=== PATIENT | male | born 1955 | race Caucasian/White ===

== ENCOUNTER 2024-10-31 12:12 | Day surgery (SDC) | payer MEDICARE, SELFPAY ==
--- OUTSIDE RECORDS SUMMARY | 2024-09-30 13:48 | XMS_ITS | Patient Health Record ---
Author Organization [facility] Address [address] [place] [address] Care Team Providers Care Linen Room Supervisor Name Role Phone Derian Muñiz MD Primary Care Provider Derek Kaminski [phone] Allergies No Known Allergies Reason For Referral No Information Medications Medication SIG (Take, Route, Frequency, Duration) Notes Start Date End Date Status Omeprazole 40 MG Oral Act ayesha Multivitamin - 1 tablet Orally Once a day for 30 day(s) Active MCT Oil - 15 mL Orally once a day Active Rosuvastatin Calcium 5 MG Oral for 90 Active amLODIPine Besy-Benazepril HCl 5-20 MG TAKE 1 CAPSULE BY MOUTH DAILY Oral for 30 Active Immunizations Vaccine Route Administration Date Status Comme nts Influenza Unknown 02/01/2019 Administered Social History Tobacco Use: Social History Observation Description Date Details (start date - stop date) Current Smoker NA - NA Tobacco Use/Smoking Question Answer Notes Patient is a current smoker How often do you smoke cigarettes? every day How many cigarettes a day do you smoke? 11-20 How soon after you wake up d o you smoke your first cigarette? 6-30 minutes Are you interested in quitting? Thinking about q uitting Section Notes: Smoker; no sig alcohol Smoker about 1ppd; no sig al cohol Smoker about 1ppd; no sig al cohol Problems Problem Type SNOMED Code ICD Code Onset Dates Problem Status W/U Status Risk Notes Problem 695849613 Encounter for screening for malignant neoplasm of colon (Z12.11) Active confirmed Problem 819993120 History of adenomatous polyp of colon (Z86.010) Active confirmed Problem [id number] Preprocedural examination (Z01.818) Active confirmed Problem Chronic GERD (K21.9) Active confirmed Vital Signs Blood pressure diastolic 00 mm Hg 06/07/2024 Height 66.5 in 06/07/2024 Blood pressure systolic 00 mm Hg 06/07/2024 Weight 160 lbs 06/07/2024 BMI 25.44 kg/m2 06/07/2024 Encounters Encounter Location Date Provider Diagnosis [facility] [address] [place] [address] 06/07/2024 Derek Lopez Preprocedural examination Z01.818 ; Chronic GERD K21.9 ; History of adenomatous polyp of colon Z86.010 and Encounter for screening for malignant neoplasm of colon Z12.11 [facility] [address] [place] [address] 08/16/2024 Derek Lopez Assessments Encounter Date Diagnosis (ICD Code) Assessment Notes Treatment Notes Treatment Clinical Notes Section Notes 06/07/2024 Preprocedural examination (ICD-10 - Z01.818) Overall, Efrain appears well. His reflux seems to be quite stable on his current regimen of omeprazole. He is not having any new or worrisome symptoms to suggest the need for another upper endoscopy at this time. I did advise him to continue his omeprazole, as well as to stop smoking. Given his age, good clinical appearance, history of tubular adenomas of the colon, and his last colonoscopy being over 5 years ago, I did recommend a followup colonoscopy for further screening purposes. We did review the rationale for that in regard to colon cancer prevention. Full consent was obtained for this, including risks of bleeding and duration. The procedure will be done with monitored anesthesia care. Efrain was comfortable with this plan. Thank you again for allowing me to participate in Efrain's care. I shall continue to keep you advised of his progress. 06/07/2024 Chronic GERD (ICD-10 - K21.9) Overall, Efrain appears well. His reflux seems to be quite stable on his current regimen of omeprazole. He is not having any new or worrisome symptoms to suggest the need for another upper endoscopy at this time. I did advise him to continue his omeprazole, as well as to stop smoking. Given his age, good clinical appearance, history of tubular adenomas of the colon, and his last colonoscopy being over 5 years ago, I did recommend a followup colonoscopy for further screening purposes. We did review the rationale for that in regard to colon cancer prevention. Full consent was obtained for this, including risks of bleeding and duration. The procedure will be done with monitored anesthesia care. Al was comfortable with this plan. Thank you again for allowing me to participate in Al's care. I shall continue to keep you advised of his progress. 06/07/2024 History of adenomatous polyp of colon (ICD-10 - Z86.010) Overall, Efrain appears well. His reflux seems to be quite stable on his current regimen of omeprazole. He is not having any new or worrisome symptoms to suggest the need for another upper endoscopy at this time. I did advise him to continue his omeprazole, as well as to stop smoking. Given his age, good clinical appearance, history of tubular adenomas of the colon, and his last colonoscopy being over 5 years ago, I did recommend a followup colonoscopy for further screening purposes. We did review the rationale for that in regard to colon cancer prevention. Full consent was obtained for this, including risks of bleeding and duration. The procedure will be done with monitored anesthesia care. Al was comfortable with this plan. Thank you again for allowing me to participate in Al's care. I shall continue to keep you advised of his progress. 06/07/2024 Encounter for screening for malignant neoplasm of colon (ICD-10 - Z12.11) Overall, Efrain appears well. His reflux seems to be quite stable on his current regimen of omeprazole. He is not having any new or worrisome symptoms to suggest the need for another upper endoscopy at this time. I did advise him to continue his omeprazole, as well as to stop smoking. Given his age, good clinical appearance, history of tubular adenomas of the colon, and his last colonoscopy being over 5 years ago, I did recommend a followup colonoscopy for further screening purposes. We did review the rationale for that in regard to colon cancer prevention. Full consent was obtained for this, including risks of bleeding and duration. The procedure will be done with monitored anesthesia care. Al was comfortable with this plan. Thank you again for allowing me to participate in Al's care. I shall continue to keep you advised of his progress. Plan Of Treatment Future Test Test Name Order Date COLONOSCOPY 10/25/2013 COLONOSCOPY 03/03/2019 COLONOSCOPY 06/07/2024 Next Appt Details Provider Name:Derek Lopez , 10/31/2024 01:40:00 PM, [address] [place] [address] , [place], [place], [phone], Insurance Providers Payer Name Payer Address Payer Phone Subscriber Number Group Number Insured Name Patient Relationship to Insured Coverage Start Date Coverage End Date [facility] [address] [place] [address] [id number] [id number] AC Self - patient is the insured Medical (General) History Medical History History ICD Code GERD-EGD in 06/2007--moderate-sized HH, n o esophagitis nor Salazar's Screening colon in 06/2007-1 small tubular adenoma removed; neg. colonoscopy in 01/2014 Hypertension Denies HI,DM,CVA,Lung disease,renal dise ase Surgical History Surgery Date(Month/Year) Back surgery
--- NOTE | 2024-10-28 11:05 | HO.ANESPROP2 ---
Documented by User: Cecile Domingo NP 10/28/24 11:06 HPI - Anesthesia Eval Consult details Narrative: 69yo M for Colonoscopy [facility] Past Medical History Medical History (Updated 10/28/24 @ 11:06 by Cecile Domingo NP) HTN (hypertension) GERD (gastroesophageal reflux disease) Surgical History Surgical History H/O colonoscopy (~2013) Hx of esophagogastroduodenoscopy (~2007) History of back surgery Social History Social History Are you a primary career technical education instructor to a significant other at home: No Do you presently have visiting nurse or other home services: No Patient Tobacco Use Status: Current everyday Tobacco user Tobacco use type: Cigarette Cigarettes Per Day: 10 Use of substances other than those prescribed or required for medical reasons: Yes Substance Use Frequency: Daily Have you been hit, kicked, punched, or otherwise hurt by someone within the past year? If so, by whom?: No Are you DNR?: No Advance Directives: No Advance Directives Information Provided: Yes Poor oral hygiene: No Meds Allergies Allergy/AdvReac Type Severity Reaction Status Date / Time No Known Allergies Allergy Verified 10/31/24 13:02 Home Medications ?Medication ?Instructions ?Recorded ?Confirmed ?Last Taken ?Type MCT Oil 10/28/24 10/28/24 Unknown History amlodipine 10 mg-benazepril 40 mg 1 cap PO DAILY 10/28/24 10/28/24 Unknown History capsule multivitamin 10/28/24 Unknown History omeprazole 40 mg capsule,delayed 40 mg PO DAILY 10/28/24 10/28/24 Unknown History release rosuvastatin 5 mg tablet 5 mg PO DAILY 10/28/24 10/28/24 Unknown History Assessment and Plan Assessment Anesthesia Assessment: Chart Reviewed Documented by User: Kaden Hollis MD 10/31/24 14:36 [facility] Past Medical History Medical History (Updated 10/28/24 @ 11:06 by Cecile Domingo NP) HTN (hypertension) GERD (gastroesophageal reflux disease) Functional capacity: independent ambulation Family History Family history of problems with anesthesia: No Surgical History Surgical History H/O colonoscopy (~2013) Hx of esophagogastroduodenoscopy (~2007) History of back surgery History of Problems with Anesthesia: No Social History Social History Are you a primary career technical education instructor to a significant other at home: No Do you presently have visiting nurse or other home services: No Patient Tobacco Use Status: Current everyday Tobacco user Tobacco use type: Cigarette Cigarettes Per Day: 10 Use of substances other than those prescribed or required for medical reasons: Yes Substance Use Frequency: Daily Have you been hit, kicked, punched, or otherwise hurt by someone within the past year? If so, by whom?: No Are you DNR?: No Advance Directives: No Advance Directives Information Provided: Yes Poor oral hygiene: No Meds Allergies Allergy/AdvReac Type Severity Reaction Status Date / Time No Known Allergies Allergy Verified 10/31/24 13:02 Home Medications ?Medication ?Instructions ?Recorded ?Confirmed ?Last Taken ?Type MCT Oil 10/28/24 10/28/24 Unknown History amlodipine 10 mg-benazepril 40 mg 1 cap PO DAILY 10/28/24 10/28/24 Unknown History capsule multivitamin 10/28/24 Unknown History omeprazole 40 mg capsule,delayed 40 mg PO DAILY 10/28/24 10/28/24 Unknown History release rosuvastatin 5 mg tablet 5 mg PO DAILY 10/28/24 10/28/24 Unknown History Exam Exam Date and Time: 10/31/2024 Height,Weight and Vital Signs: 68 inches; 152lbs Airway TM Dist: >3cm Neck ROM: Full Heart: rrr Lungs: cta Other: oriented Assessment and Plan Final Anesthetic Review Family History of Problems with Anesthesia: No History of Problems with Anesthesia: No NPO: Yes ASA Class: II Final Preanesthetic Review: No Changes in Pt Med Stat, Meds/Allgs Chart Reviewed, Consent Obtained/Reviewed and Anes Risks/Benef Reviewed Patient Risk: Low Procedure Risk: Low Anesthetic Plan Anesthetic Plan: MAC: Disposition: Standard PACU
[2024-10-31 13:04] VITALS: BP 139/91; PULSE 98; RESP 14; TEMP 36.6; O2SAT 94; BMI 23.1
[2024-10-31] MEDS: Lactated Ringers 1,000 ML 100 ML IVCONT (13:04)
[2024-10-31 15:17] VITALS: BP 90/58; PULSE 70; RESP 16; TEMP 36.1; O2SAT 93
--- NOTE | 2024-10-31 15:19 | P.BOP_ITS ---
Brief Operative Note Date of Service: 10/31/24 Pre-op diagnosis: Screening Post-op diagnosis: other (Colon polyp) Procedure: Colonoscopy to the cecum and TI with cold snare polypectomy x 1 Surgeon: Derek Lopez MD Anesthesia: MAC Was an Registered Travel Nurse used for this Procedure?: No Estimated blood loss (mL): 2.0 Pathology: other (A. Ascending colon polyp) Condition: stable Disposition: PACU
[2024-10-31 15:32] VITALS: BP 101/69; PULSE 88; RESP 16; TEMP 36.1; O2SAT 92
--- NOTE | 2024-11-01 02:15 | OP_ITS ---
DATE OF SERVICE: 10/31/2024 SURGEON: Derek Lopez MD INDICATIONS: The patient presents for evaluation of colorectal cancer screening and personal history of tubular adenoma of the colon. Full consent has been obtained from him for this, including risks of bleeding and perforation. PREOPERATIVE DIAGNOSIS: POSTOPERATIVE DIAGNOSIS: PROCEDURE PERFORMED: ESTIMATED BLOOD LOSS: COMPLICATIONS: ANESTHESIA: Medication used, monitored anesthesia care. ASSISTANTS: SPECIMENS: PREOPERATIVE DIAGNOSES: Colorectal cancer screening and personal history of tubular adenoma of the colon. POSTOPERATIVE DIAGNOSES: Colorectal cancer screening and personal history of tubular adenoma of the colon, colon polyp, diverticulosis, and internal hemorrhoids. PROCEDURES PERFORMED: Colonoscopy to cecum and terminal ileum with cold snare polypectomy. DESCRIPTION OF PROCEDURE: The patient was placed in the left lateral decubitus position. The digital rectal exam revealed no abnormalities. The Olympus video pediatric colonoscope was entered into the rectum and advanced easily to the cecum. Once in the cecum, I did identify normal-appearing cecal pouch with appendiceal orifice and a normal-appearing ileocecal valve. The terminal ileum was cannulated and appeared normal. Scope was withdrawn back in the colon. The entire cecum and ileocecal valve appeared normal. The scope was slowly withdrawn assessing all mucosal surfaces carefully. Preparation was excellent. In the proximal ascending colon was an approximately 8 mm polyp, which was removed by cold snare polypectomy and recovered by suction. The polypectomy site appeared clean, without any sign of residual polyp nor significant bleeding. I did not visualize any other polyps, colitis, nor angiodysplasia. There was a mild amount of sigmoid diverticulosis. In the rectum, scope was retroflexed visualizing internal hemorrhoids, but no other pathology. The rectal mucosa appeared normal. Scope was straightened out and withdrawn from the patient. He tolerated the procedure well and was returned to recovery area in stable condition. IMPRESSION: 1. Colon polyp. 2. Diverticulosis. 3. Internal hemorrhoids. PLAN: The results of the pathology will be checked. I would recommend a repeat colonoscopy in 5 years for further screening and surveillance. He will otherwise see me on a p.r.n. basis. MD MACKENZIE Carvalho/PACO / [id number]
== END 2024-10-31 15:48 | disposition home or self-care (01) ==
PROVIDERS: PCP Internal Medicine; Visit Provider Internal Medicine
PROC: 0DJD8ZZ Inspection of Lower Intestinal Tract, Via Natural or Artificial Opening Endoscopic (ICD-10-PCS; CPT 45378; principal; 2024-10-31 13:40)
DX: Z12.11 Encounter for screening for malignant neoplasm of colon (principal); Z86.0101 Personal history of adenomatous and serrated colon polyps; D12.2 Benign neoplasm of ascending colon; K57.30 Diverticulosis of large intestine without perforation or abscess without bleeding; K64.8 Other hemorrhoids; K21.9 Gastro-esophageal reflux disease without esophagitis; I10 Essential (primary) hypertension; Z79.899 Other long term (current) drug therapy; Z98.890 Other specified postprocedural states; F17.210 Nicotine dependence, cigarettes, uncomplicated
CPT/HCPCS: 45385; 88305; J2003; J2704; J3010